=== PATIENT | male | born 1975 | race Caucasian/White ===

== ENCOUNTER 2021-03-06 07:54 | Outpatient (CLI) | payer BC, SELFPAY ==
--- NOTE | ~2021-03-06 | XR_ITS ---
XR chest 2V DATE: 03/06/2021 09:11 INDICATION: Prostate cancer TECHNIQUE: PA and lateral views COMPARISON: None FINDINGS: Normal heart size. No hilar or mediastinal enlargement. No pulmonary infiltrate or consolid ation, pleural effusion or pulmonary vascular congestion or pneumothorax. IMPRESSION: No active cardiopulmonary disease Reviewed, dictated and finalized at location B.
--- NOTE | 2021-03-06 08:52 | ECG_ITS ---
Measurements Intervals [place] Rate: 52 P: 45 RI: 191 QRS: 14 QRSD: 113 T: 14 QT: 417 QTc: 389 Interpretive Statements SINUS BRADYCARDIA INTRAVENTRICULAR CONDUCTION DELAY BORDERLINE ECG Electronically Signed On 03-06-2021 9:08:16 CDT by Sujit Drummond D.O.
[2021-03-06 09:49] LABS: Basophils Percent Auto 0.8 % (0.2-1.2); Eosinophils Absolute Auto 0.5 K/mm3 (0-0.3); Eosinophils Percent Auto 9.3 % (0-4.4); Hematocrit 50.5 % (42.0-52.0); Hemoglobin 16.9 g/dL (14.0-18.0); Immature Granulocyte Absolute 0.02 K/mm3 (0.00-0.031); Immature Granulocyte Percent A 0.4 % (0-0.5); Lymphocytes Absolute Auto 1.81 K/mm3 (0.9-3.2); Lymphocytes Percent Auto 34.3 % (18.3-44.2); Mean Corpuscular HGB Conc 33.5 g/dl (32-36); Mean Corpuscular Hemoglobin 30.8 pg (26-34); Mean Corpuscular Volume 92.2 fl (80-100); Mean Platelet Volume 11.4 fl (7.4-10.4); Monocytes Absolute Auto 0.4 K/mm3 (0.1-0.6); Monocytes Percent Auto 7.6 % (2.6-8.5); Neutrophils Absolute Auto 2.5 K/mm3 (1.3-6.7); Neutrophils Percent Auto 47.6 % (45.5-73.1); Platelet Count Result 228 k/mm3 (150-375); Red Blood Count 5.48 M/mm3 (4.6-6.20); Red Cell Distribution Width 13.5 % (11.5-14.5); White Blood Count 5.3 K/mm3 (4.5-10.0)
[2021-03-06 09:56] LABS: Add Urine Microscopic? YES; Appearance Urine Clear (Clear); Bilirubin Urine Negative (Negative); Blood Urine Negative (Negative); Color Urine Yellow (Yellow); Glucose Urine UA Negative (Negative); Ketones Urine Negative (Negative); Leukocyte Esterase Ur Negative LEU/UL (Negative); Mucus Urine Rare /lpf; Nitrate Urine Negative (Negative); Protein Urine Negative (Negative); RBC Urine 0-2 /hpf (0-2); Specific Grav Ur 1.021 (1.001-1.035); Urobilinogen Urine Negative mg/dL (<2.0); WBC Urine 0-3 /hpf
[2021-03-06 10:01] LABS: INR 0.9; Prothrombin Time 13.2 Seconds (11.1-14.7)
[2021-03-06 10:02] LABS: Partial Thromboplastin Time 26.9 SECONDS (22.3-36.8)
[2021-03-06 10:20] LABS: Alanine Aminotransferase 58 U/L (4-50); Albumin Level 4.5 g/dL (3.5-5.1); Alkaline Phosphatase 70 U/L (38-126); Anion Gap 7 mmol/L (8-16); Aspartate Amino Transferase 42 U/L (17-59); Bilirubin,Total 0.3 mg/dL (0.2-1.3); Blood Urea Nitrogen 14 mg/dL (9-20); Calcium 9.4 mg/dL (8.4-10.2); Carbon Dioxide 29 mmol/L (22-30); Chloride 105 mmol/L (98-107); Estimated Glomerular Filt Rate > 60; Glucose 91 mg/dL (75-110); Sodium 141 mmol/L (137-145)
== END 2021-03-06 07:55 | disposition home or self-care (01) ==
LOC: ANHSURGERY 07:58
PROVIDERS: PCP Physician Assistant; Visit Provider Urology
DX: Z01.818 Encounter for other preprocedural examination (principal); C61 Malignant neoplasm of prostate; R00.1 Bradycardia, unspecified
CPT/HCPCS: 36415; 71046; 80053; 81001; 85025; 85610; 85730; 86850; 86900; 86901; 93005

== ENCOUNTER → 2021-03-13 01:50 | Outpatient (CLI) | payer BC, SELFPAY ==
[2021-03-15 19:26] LABS: SARS-CoV-2 RNA PCR Negative
== END ==
PROVIDERS: PCP Physician Assistant; Visit Provider Urology
DX: Z01.812 Encounter for preprocedural laboratory examination (principal); Z20.822 Contact with and (suspected) exposure to COVID-19
CPT/HCPCS: C9803; U0003; U0005

== ENCOUNTER 2021-03-16 01:21 | Day surgery (SDC) | payer BC, SELFPAY ==
[2021-03-06 08:16] VITALS: BP 111/69; PULSE 55; RESP 16; TEMP 36.7; O2SAT 97; BMI 35.4
--- NOTE | 2021-03-13 07:47 | P.HP_ITS ---
H&P: HPI History of Present Illness Date/Time: 03/13/21 07:47 This patient is a pleasant 46-year-old male was recently referred with a PSA of 3.3. Prostate ultrasound and biopsy revealed a 36 g prostate with 1 of 12 cores having Saulo 3+3=6 adenocarcinoma of the prostate. There was 1 additional core that was suspicious for carcinoma. After careful discussion of the therapeutic options including active surveillance, radiation therapy in its various forms, robotic prostatectomy he has elected for the latter. He is aware the risks including, but not limited to, adverse cardiopulmonary events, rectal injury, erectile dysfunction, ejaculatory changes and urinary incontinence. Chief Complaint: Prostate cancer Review of Systems Cardiovascular: Cardiovascular: Denies chest pain, Denies lightheadedness, Denies palpitations and Denies dyspnea Respiratory: Respiratory: Denies dyspnea Gastrointestinal: Gastrointestinal: Denies diarrhea, Denies nausea and Denies vomiting Genitourinary: Genitourinary: Denies hematuria and Denies dysuria Endocrine: Endocrine: Denies palpitations PMFSH Family History Family History Father Family history of obesity Family history of osteoarthritis Patient's father is in good health Family history of elevated blood lipids Carcinoma of colon Mother Patient's mother is in good health Family history of diabetes mellitus in first degree relative Sibling Patient's sister is in good health Patient's brother is in good health Social History Social History Smoking status: Never smoker Alcohol intake: current Drinks per week: 3 Substance use: never Additional living arrangements comments: AND CHILDREN Spiritual care concerns: No Meds Home Medications and Allergies Home Medications Medication Instructions Recorded Confirmed Type levothyroxine 75 mcg PO QAM 03/06/21 03/06/21 History loratadine 10 mg PO DAILY 03/06/21 03/06/21 History metoprolol succinate 25 mg PO QAM 03/06/21 03/06/21 History montelukast 10 mg PO QAM 03/06/21 03/06/21 History sertraline 100 mg PO QAM 03/06/21 03/06/21 History Allergies Allergy/AdvReac Type Severity Reaction Status Date / Time No Known Allergies Allergy Verified 03/06/21 08:08 Exam Const: General: no acute distress Resp: Effort & Inspection: normal respiratory effort GI: Inspection: non-distended GI Palp: No abdominal tenderness and No Guarding due to palpation present (GI) Auscultation: normal bowel sounds Assessment and Plan Assessment and plan (1) Prostate cancer: Code(s): C61 - Malignant neoplasm of prostate Status: Acute Assessment and Plan: * Robotic assisted laparoscopic prostatectomy with bilateral pelvic lymphadenectomy.
[2021-03-16] VITALS (9 sets, daily range): BP systolic 116–122; BP diastolic 69–83; PULSE 65–104; RESP 16–20; TEMP 36.2–36.3; O2SAT 97–98
--- NOTE | 2021-03-16 06:10 | WPDHPUPDATE1 ---
History and Physical Update Update Date/Time: 03/16/21 06:10 History and Physical has been reviewed, including an updated exam of the patient. There are NO changes in the patient's condition. Risks, benefits, and alternatives have been discussed and questions answered. Patient agrees to proceed with procedure.
[2021-03-16] MEDS: LACTATED RINGERS 1,000 ML 30 ML IV CONT ×2 (06:25→08:39)
--- NOTE | 2021-03-16 06:46 | WPDANESEPPF ---
Anes - Initial Pre Proc Eval Procedure: Operation Date: 03/16/21 07:30 Proposed Procedures p Robotic Assisted Laparoscopic Prostatectomy, Bilateral Pelvic Lymph Node Dissection - Gage Maldonado MD Date/Time: 03/16/21 06:46 Surgeon: Gage Maldonado MD Pre Op Diagnosis: prostate CA Patient Data Age: 46 Gender: M Height: 5 ft 6 in Weight: 96.9 kg Last Vital Signs Temp 36.3 C L 03/16/21 06:35 Pulse 65 03/16/21 06:35 Resp 16 03/16/21 06:35 BP 116/76 03/16/21 06:35 Pulse Ox 98 03/16/21 06:35 Allergies Allergy/AdvReac Type Severity Reaction Status Date / Time No Known Allergies Allergy Verified 03/16/21 06:02 Home Medications Medication Instructions Recorded Confirmed Type levothyroxine 75 mcg PO QAM 03/06/21 03/16/21 History loratadine 10 mg PO DAILY 03/06/21 03/16/21 History metoprolol succinate 25 mg PO QAM 03/06/21 03/16/21 History montelukast 10 mg PO QAM 03/06/21 03/16/21 History sertraline 100 mg PO QAM 03/06/21 03/16/21 History Patient hx anesthesia problems: none Family hx anesthesia problems: none [facility] Past Medical History Medical History (Updated 03/16/21 @ 06:46 by Bennie Teague MD) Anxiety Depression HTN (hypertension) Obesity Family History Family History Father Family history of obesity Family history of osteoarthritis Patient's father is in good health Family history of elevated blood lipids Carcinoma of colon Mother Patient's mother is in good health Family history of diabetes mellitus in first degree relative Sibling Patient's sister is in good health Patient's brother is in good health Social History Social History Smoking status: Never smoker Alcohol intake: current Drinks per week: 3 Substance use: never Living arrangements: with family Additional living arrangements comments: AND CHILDREN Spiritual care concerns: No Anes - Eval Final PreProcedure Day of Procedure 03/16/21 06:46 Patient weight: obese Heart: regular rate and rhythm Lungs: clear to auscultation Airway: Mallampati scale class III Neurological: alert and oriented Last oral intake: >/= 8 hours ASA classification: III Emergent: no Anesthetic plan: proceed Anesthesia type and monitoring: general ETT and standard monitoring Informed Consent: The patient's anesthetic plan and its attendant risks and benefits were discussed with the patient/family/POA. Questions were solicited and answers provided to the satisfaction of the patient/family/POA.
[2021-03-16] MEDS: ceFAZolin 2 GM/D5W 50 ML 2 GM/50 ML BAG IVPB (07:27)
--- NOTE | 2021-03-16 10:24 | P.OP_ITS ---
Procedure Note - Detailed Date of procedure: 03/16/21 Pre-op diagnosis: Prostate CA Post-op diagnosis: same Procedure performed: Laparoscopy, aborted robotic prostatectomy Description of procedure: Patient brought to the operative suite where he has prepped and draped in routine sterile fashion while in a dorsal lithotomy position. Time-out is secured to are insure proper patient and procedure identification. remainder of proper positioning and padding, the patient was tested in a steep Trendelenburg position. In that position, there was no compromise to his tidal volume or sliding on the OR table. A Veress needle was placed in the supraumbilical incision insufflation was undertaken. A 12 mm there trocar was then placed under direct visualization through the suprapubic incision. We just started to place a couple robotic trocars in his left lower quadrant when he became hypotensive and eventually developed asystole. Patient responded quickly to anesthesia measures (outlined elsewhere ) including administration of atropine and chest compressions for 15-30 seconds. After period of observation the patient was quite stable. I opted however to abort the procedure in anticipation of potential problems that could arise with re- insufflation and placement in Trendelenburg positioning. The suprapubic incision was closed with 0 Prolene in the fashion and for Vicryl subcuticular in the skin. Blood loss was negligible. Anesthesia: GLMA Surgeon: Gage Maldonado MD Mva Reactor Operator: MEY Baez Drains: No Packing: No Pathology: none sent Complications: No immediate complications Condition: stable Disposition: PACU
== END 2021-03-16 10:29 | disposition home or self-care (01) ==
PROVIDERS: PCP Physician Assistant; Visit Provider Urology
PROC: 0VT04ZZ Resection of Prostate, Percutaneous Endoscopic Approach (ICD-10-PCS; CPT 55867; principal; 2021-03-16 07:30)
DX: C61 Malignant neoplasm of prostate (principal); I97.711 Intraoperative cardiac arrest during other surgery; I10 Essential (primary) hypertension; F41.8 Other specified anxiety disorders; E66.9 Obesity, unspecified; Z68.34 Body mass index [BMI] 34.0-34.9, adult; Y83.8 Other surgical procedures as the cause of abnormal reaction of the patient, or of later complication, without mention of misadventure at the time of the procedure; Z53.09 Procedure and treatment not carried out because of other contraindication
CPT/HCPCS: 55866; 92950; J0330; J0461; J0690; J1170; J2250; J2704; J3010; J7030; J7120

== ENCOUNTER 2021-06-30 13:01 | Outpatient (CLI) | payer BC, SELFPAY ==
--- NOTE | ~2021-06-30 | CT_ITS ---
EXAMINATION: CT soft tissue neck w con DATE: 06/30/2021 13:22 INDICATION: Localized swelling, mass, and lump of neck. TECHNIQUE: Computed tomography (CT) of the neck was performed with 75 mL Omnipaque-350 intravenous co ntrast. Automated exposure control and iterative reconstruction technique were employed. The dose-tamiko gth product was 496.56 mGy-cm. COMPARISON: None FINDINGS: There are skin markers at the right lateral and left lateral aspects of the inferior neck. There are no pathologically enlarged lymph nodes. There is no visible plaque in the proximal internal carotid arteries. There is mild cervical spondylosis. IMPRESSION: 1. No abnormal mass or lymphadenopathy in the neck. Reviewed, dictated and finalized at location A.
== END 2021-06-30 13:02 | disposition home or self-care (01) ==
LOC: ANHIMG 13:03
PROVIDERS: PCP Physician Assistant; Visit Provider Physician Assistant
DX: R22.1 Localized swelling, mass and lump, neck (principal)
CPT/HCPCS: 70491; Q9967

== ENCOUNTER 2022-10-04 00:18 | Day surgery (SDC) | payer BC, SELFPAY ==
[2022-09-24 14:59] VITALS: BMI 37.3
--- NOTE | 2022-10-03 17:14 | P.HP_ITS ---
History of Present Illness History of Present Illness Consent: Risks, benefits, and alternatives have been discussed and questions answered. Patient agrees to proceed with procedure. Chief complaint: Hx of colon polyps Narrative: Valentín Mcdowell is a 47 year old male Referred for colon cancer screening. He has history of polyps. Review of Systems Review of Systems: All systems reviewed & are unremarkable except as noted in HPI and below PMFSH Past Medical History Medical History Anxiety Depression HTN (hypertension) Hyperlipidemia Hypothyroidism Obesity Prostate cancer Family History Family History Father Family history of obesity Family history of osteoarthritis Patient's father is in good health Family history of elevated blood lipids Carcinoma of colon Mother Patient's mother is in good health Family history of diabetes mellitus in first degree relative Sibling Patient's sister is in good health Patient's brother is in good health Social History Social History Smoking status: Never smoker Alcohol intake: current Drinks per week: 3 Alcohol use details: once a week Substance use: never Substance use type: does not use Living arrangements: with family Additional living arrangements comments: AND CHILDREN Spiritual care concerns: No Meds Home Medications and Allergies Home Medications Medication Instructions Recorded Confirmed Type levothyroxine 75 mcg tablet 75 mcg PO [facility] 03/06/21 10/04/22 History loratadine 10 mg capsule 10 mg PO DAILY 03/06/21 10/04/22 History metoprolol succinate 25 mg 25 mg PO [facility] 03/06/21 10/04/22 History tablet,extended release 24 hr montelukast 10 mg tablet 10 mg PO [facility] 03/06/21 10/04/22 History sertraline 100 mg tablet 100 mg PO QA 03/06/21 10/04/22 History atorvastatin 10 mg tablet 10 mg PO DAILY 09/24/22 10/04/22 History Allergies Allergy/AdvReac Type Severity Reaction Status Date / Time No Known Allergies Allergy Verified 10/04/22 09:36 Exam Const: General: alert Orientation/consciousness: patient oriented x3 Resp: Auscultation: clear to auscultation bilaterally Cardio: Rhythm: regular rhythm GI: GI Palp: Yes Soft to palpation and No Tenderness to palpation present (GI) Neuro: General: patient oriented x3 Assessment and Plan Assessment and plan (1) Colon cancer screening: Code(s): Z12.11 - Encounter for screening for malignant neoplasm of colon Status: Acute Assessment and Plan: Colonoscopy with possible biopsy or polypectomy or cautery or injection of substances.
--- NOTE | 2022-10-04 09:04 | WPDANESEPPF ---
Anes - Initial Pre Proc Eval Procedure: Operation Date: 10/04/22 10:30 Proposed Procedures p Screening Colonoscopy - Jarret Koo MD Date/Time: 10/04/22 09:04 Surgeon: Jarret Koo MD Pre Op Diagnosis: Hx of colon polyps Patient Data Age: 47 Gender: M Height: 1.68 m Weight: 105 kg Allergies Allergy/AdvReac Type Severity Reaction Status Date / Time No Known Allergies Allergy Verified 10/04/22 09:36 Home Medications Medication Instructions Recorded Confirmed Type levothyroxine 75 mcg tablet 75 mcg PO QAM 03/06/21 10/04/22 History loratadine 10 mg capsule 10 mg PO DAILY 03/06/21 10/04/22 History metoprolol succinate 25 mg 25 mg PO QAM 03/06/21 10/04/22 History tablet,extended release 24 hr montelukast 10 mg tablet 10 mg PO QAM 03/06/21 10/04/22 History sertraline 100 mg tablet 100 mg PO QAM 03/06/21 10/04/22 History atorvastatin 10 mg tablet 10 mg PO DAILY 09/24/22 10/04/22 History Patient hx anesthesia problems: none Family hx anesthesia problems: none Results Review: All pre-operative results and documents have been reviewed as part of the pre-operative evaluation. [facility] Past Medical History Medical History (Updated 10/04/22 @ 09:05 by Lion Banda MD) Anxiety Depression HTN (hypertension) Hyperlipidemia Hypothyroidism Obesity Prostate cancer Family History Family History Father Family history of obesity Family history of osteoarthritis Patient's father is in good health Family history of elevated blood lipids Carcinoma of colon Mother Patient's mother is in good health Family history of diabetes mellitus in first degree relative Sibling Patient's sister is in good health Patient's brother is in good health Social History Social History Smoking status: Never smoker Alcohol intake: current Drinks per week: 3 Alcohol use details: once a week Substance use: never Substance use type: does not use Living arrangements: with family Additional living arrangements comments: AND CHILDREN Spiritual care concerns: No Anes - Eval Final PreProcedure Day of Procedure 10/04/22 09:04 Patient weight: obese Heart: regular rate and rhythm Lungs: clear to auscultation Airway: Mallampati scale class III Neurological: alert and oriented Last oral intake: >/= 8 hours ASA classification: III Emergent: no Anesthetic plan: proceed Anesthesia type and monitoring: general GIVS and standard monitoring Results Review: All pre-operative results and documents have been reviewed as part of the pre-operative evaluation. Informed Consent: The patient's anesthetic plan and its attendant risks and benefits were discussed with the patient/family/POA. Questions were solicited and answers provided to the satisfaction of the patient/family/POA.
[2022-10-04 09:28] VITALS: BP 118/84; PULSE 66; RESP 18; TEMP 36.2; O2SAT 100; BMI 36.7
[2022-10-04] MEDS: LACTATED RINGERS 1,000 ML 150 ML IV CONT (09:46)
[2022-10-04 10:54] VITALS: BP 119/70; PULSE 60; RESP 20; O2SAT 98
[2022-10-04 11:04] VITALS: BP 121/74; PULSE 60; RESP 20; O2SAT 97
[2022-10-04 11:14] VITALS: BP 138/82; PULSE 62; RESP 18; O2SAT 100
== END 2022-10-04 11:23 | disposition home or self-care (01) ==
PROVIDERS: PCP Physician Assistant; Visit Provider Internal Medicine Gastroenterology
PROC: 0DJD8ZZ Inspection of Lower Intestinal Tract, Via Natural or Artificial Opening Endoscopic (ICD-10-PCS; CPT 45378; principal; 2022-10-04 10:30)
DX: Z12.11 Encounter for screening for malignant neoplasm of colon (principal); K57.30 Diverticulosis of large intestine without perforation or abscess without bleeding; D12.4 Benign neoplasm of descending colon; D12.8 Benign neoplasm of rectum; I10 Essential (primary) hypertension; E03.9 Hypothyroidism, unspecified; F41.9 Anxiety disorder, unspecified; F32.A Depression, unspecified; E78.5 Hyperlipidemia, unspecified; Z85.46 Personal history of malignant neoplasm of prostate; E66.9 Obesity, unspecified; Z68.36 Body mass index [BMI] 36.0-36.9, adult
CPT/HCPCS: 45385; 88305; J2704; J7120

== ENCOUNTER 2025-09-26 11:48 | Emergency (ER) | payer OTHER, SELFPAY ==
--- NOTE | ~2025-09-26 | XR_ITS ---
Examination: XR wrist RT min 3V, XR hand RT min 3V Clinical History: FALL, PAIN, BRUISING IN WRIST Comparison: None Technique: 4 views right wrist, 3 views right hand Findings/impression: Right wrist: 1. Nondisplaced fracture distal radius. No definite intra-articular extension. 2. No other fracture identified. 3. No dislocation. Right hand: 1. No fracture or dislocation. Reviewed, dictated and finalized at location R. 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
[2025-09-26 12:11] VITALS: BP 133/75; PULSE 62; RESP 16; TEMP 36.3; O2SAT 99
--- NOTE | 2025-09-26 13:18 | ED.GENADULT ---
HPI - General Adult General Chief complaint: Extremity Injury, Upper Stated complaint: R hand pain Time Seen by Provider: 09/26/25 13:18 History of Present Illness HPI narrative: 50-year-old male patient presents to [facility] with complaints of right wrist pain. Patient states he slipped and fell on the ice on Saturday. Patient states he did ice it once since been taking ibuprofen for the pain. Patient states it is bruised and that has driven him to come and get checked out today. Related Data Home Medications ?Medication ?Instructions ?Recorded ?Confirmed ?Last Taken ?Type levothyroxine 75 mcg tablet 75 mcg PO QA 03/06/21 09/26/25 03/16/21 05:30 History loratadine 10 mg capsule 10 mg PO DAILY 03/06/21 09/26/25 03/15/21 History metoprolol succinate 25 mg 25 mg PO [facility] 03/06/21 09/26/25 03/16/21 05:30 History tablet,extended release 24 hr montelukast 10 mg tablet 10 mg PO [facility] 03/06/21 09/26/25 03/15/21 History sertraline 100 mg tablet 100 mg PO M 03/06/21 09/26/25 03/16/21 05:30 History atorvastatin 10 mg tablet 10 mg PO DAILY 09/24/22 09/26/25 Unknown History minoxidil 2.5 mg tablet mg 09/26/25 Unknown History Allergies Allergy/AdvReac Type Severity Reaction Status Date / Time No Known Allergies Allergy Verified 09/26/25 12:40 Review of Systems Review of Systems: CONSTITUTIONAL: Denies fever, chills, or sweats. EYES: Denies visual changes, redness, or discharge. ENT: Denies rhinorrhea, congestion, sore throat, or otalgia. CARDIOVASCULAR: Denies chest pain, palpitations, or edema. RESPIRATORY: Denies cough or dyspnea. GASTROINTESTINAL: Denies abdominal pain, nausea, vomiting, or diarrhea. GENITOURINARY: Denies dysuria or hematuria. SKIN: Denies rash or itching. MUSCULOSKELETAL: Denies back pain, joint pain, or myalgia. Positive right wrist pain NEUROLOGIC: Denies headache, numbness, or weakness. PSYCHIATRIC: Denies anxiety or depression. [facility] Past Medical History Medical History Hypothyroidism Hyperlipidemia HTN (hypertension) Depression Anxiety Obesity Prostate cancer Family History Family History Father Family history of obesity Family history of osteoarthritis Patient's father is in good health Family history of elevated blood lipids Carcinoma of colon Mother Patient's mother is in good health Family history of diabetes mellitus in first degree relative Sibling Patient's sister is in good health Patient's brother is in good health Social History Social History Smoking status: Never smoker Alcohol intake: current Drinks per week: 3 Alcohol use details: once a week Substance use: never Substance use type: does not use Living arrangements: with family Additional living arrangements comments: AND CHILDREN Spiritual care concerns: No Comments at the time of my signature I agree with nursing past medical history, surgical, social, and family history. There is no relevant family history pertinent to the presenting complaint. Exam Narrative: GENERAL: Well-appearing, well-nourished, and in no acute distress. HEAD: Normocephalic, atraumatic. EYES: PERRLA and EOMI. ENT: Nares clear, no rhinorrhea or epistaxis. Mucous membranes moist. NECK: Supple. No lymphadenopathy CHEST: Clear to auscultation. No respiratory distress. HEART: Regular rate and rhythm. No murmur heard. Normal peripheral pulses. ABDOMEN: Soft, nontender, nondistended, normal active bowel sounds. EXTREMITIES: The R wrist is without obvious asymmetry or deformity when compared to the L wrist. No surface trauma, open wounds, swelling, or obvious deformity. there is ecchymosis and bruising noted to the right forearm. No overlying erythema or warmth. No bony crepitus. Tenderness noted to the distal radius on the right wrist. No scaphoid fullness or tenderness to direct palpation or axial load. pain with flex/extension, ulnar/radial deviation. Motor/sensory function of ulnar, radial, median nerves intact. Ulnar and radial pulses intact. SKIN: Warm, dry, no rash. NEURO: No focal deficits. Alert and oriented x3. Course Course Level of Care: Express Care Visit Vital Signs Vital signs: Vital Signs Temperature 36.3 C L 09/26/25 12:11 Pulse Rate 62 09/26/25 12:11 Respiratory Rate 16 09/26/25 12:11 Blood Pressure 133/75 09/26/25 12:11 Pulse Oximetry 99 09/26/25 12:11 Temperature 36.3 C L 09/26/25 12:11 Pulse Rate 62 09/26/25 12:11 Respiratory Rate 16 09/26/25 12:11 Blood Pressure 133/75 09/26/25 12:11 Pulse Oximetry 99 09/26/25 12:11 vital signs reviewed. The patient has been informed that they may have pre-hypertension or Hypertension based on a BP reading in the department. I recommend that the patient call the primary care provider listed on their discharge instructions or a physician of their choice this week to arrange follow up for further evaluation of possible pre-hypertension or Hypertension MDM MDM Narrative Medical decision making narrative: discussed with patient that the the x-ray shows a fracture to the right distal radial. Plan of care for patient is to put a temporary splint on the wrist and have a follow-up with orthopedic surgery for further evaluation treatment. Patient verbalized understanding denies any other questions or concerns at this time. Differential Diagnosis Differential Diagnosis: Differential diagnosis: Fracture, ligament injury, scaphoid fracture, sprains, tendinitis, carpal tunnel syndrome, DeQuervain's tenosynovitis Imaging Data Radiologist's impression: [facility] [address] [place] [address] [place] [address] XRay Report Signed Patient: Valentín Mcdowell : 1975 MR#: [id number] Age: 50 Acct:[id number] Loc: [facility] ADM Date: 09/26/[address]: Ordering Physician: Kristie Terrazas GANG VIBRATOR OPERATOR Date of Service: 09/26/25 Procedure(s): XR hand RT min 3V; XR wrist RT min 3V Accession Number(s): [id number]; [id number] cc: Justa, Joelle LEON; Kristie Terrazas GANG VIBRATOR OPERATOR~ Examination: XR wrist RT min 3V, XR hand RT min 3V Clinical History: FALL, PAIN, BRUISING IN WRIST Comparison: None Technique: 4 views right wrist, 3 views right hand Findings/impression: Right wrist: 1. Nondisplaced fracture distal radius. No definite intra-articular extension. 2. No other fracture identified. 3. No dislocation. Right hand: 1. No fracture or dislocation. Reviewed, dictated and finalized at location R. [place] Discharge Plan Discharge Clinical Impression: Closed fracture of right distal radius Patient Disposition: Home Condition: Stable Instructions: Antibiotic Form, Arm Fracture in Adults (ED), Splint Care (ED) Additional Instructions: Avoid weight bearing until the pain subsides. Ice to the area 20-30 minutes 4-6 times a day Elevate above heart Elastic wrap or orthopedic splint as directed for comfort for the next 5-7 days Crutches as directed if needed Tylenol for lesser pain Ibuprofen regularly for the next 2-3 days for the inflammation Follow up with your primary care provider if the condition is not improving within 1 week or sooner if the Condition worsens with numbness, tingling, decrease sensation with weakness to seek ER. Patient Language: Cymraes Prescriptions: No Action minoxidil 2.5 mg tablet atorvastatin 10 mg tablet 10 mg PO DAILY sertraline 100 mg tablet 100 mg PO QAM levothyroxine 75 mcg tablet 75 mcg PO QAM montelukast 10 mg tablet 10 mg PO QAM metoprolol succinate 25 mg tablet extended release 24 hr 25 mg PO QAM loratadine 10 mg Capsule 10 mg PO DAILY Follow-up/Referrals: Justa,EDWARD Lai [Primary Care Provider, Unknown] Balwinder Mujica MD [Physician, Orthopedics] Stand Alone Forms: Work/School Release IP Time of Disposition: 13:29
== END 2025-09-26 13:36 | disposition home or self-care (01) ==
PROVIDERS: Emergency Provider Nurse Practitioner Family; PCP Physician Assistant
DX: S52.501A Unspecified fracture of the lower end of right radius, initial encounter for closed fracture (principal); W00.0XXA Fall on same level due to ice and snow, initial encounter; I10 Essential (primary) hypertension; E78.5 Hyperlipidemia, unspecified; E03.9 Hypothyroidism, unspecified; E66.9 Obesity, unspecified; Z68.39 Body mass index [BMI] 39.0-39.9, adult; F41.9 Anxiety disorder, unspecified; F32.A Depression, unspecified; Z85.46 Personal history of malignant neoplasm of prostate
CPT/HCPCS: 29125; 73110; 73130; 99214; A4565; G0463